=== PATIENT | male | born 1980 | race African-American/Black ===

== ENCOUNTER 2017-03-04 23:39 | Emergency (ER) | payer OTHER ==
[~2017-03-04] VITALS: Ht 185.4 cm; Wt 99.8 kg
--- NOTE | ~2017-03-04 | EKG ---
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 : 1980 Requested By: Leopoldo Garcia Order Number: [id number] MD: Dom Delgado Measurements Intervals [place] Rate: 64 P: 42 [place]: 147 QRS: 7 QRSD: 78 T: 9 QT: 365 QTc: 377 Interpretive Statements Sinus rhythm Early R-wave progression Early repolarization Compared to ECG 12/23/2016 22:42:20 No significant change was found Electronically Signed On 03-06-2017 17:21:01 CDT by Dom Delgado [email or web address] <ELECTRONICALLY SIGNED> By: Dom Delgado MD, [facility] 03/06/17 1721 [id number] Dom Delgado MD, [facility] /EPI
[~2017-03-04 23:39] MED LIST: ACETAMINOPHEN325 M1 PO; ALBUTEROL2.5 MG/31 INH; ASPIR-TRIN325 MG; EXCEDRIN SINUS1 EAC2 PO; FLEXERIL PO; IBUPROFEN 600600 M1 PO; IBUPROFEN 800800 M1 PO; MOBIC15 MG PO; NAPROSYN500 MG PO; NOHOMEMEDICATIONS; NORCO 5-325 TA1 EACH PO; OMEPRAZOLE 20 M20 M1 PO; PREDNISONE 20 M20 M1 PO; PREDNISONE 20 M20 MG PO; PROAIR HFA8.5 GM IH; PROAIR HFA8.5 GM INH; PROMETHAZINE-C120 ML PO; PROTONIX40 MG PO; TRAMADOL 50 MG50 MG PO; TYLENOL325 MG PO; ULTRAM 50MG TAB50 MG PO; VICODIN 5-5001 EACH PO; ZPAK PO
[2017-03-05 00:35] LABS: HEMOGLOBIN 16.8 gm/dL (14.0-18.0); MCHC 33.7 g/dL (28.0-37.0); MCV 83.3 fL (80.0-100.0); RDW 13.6 % (10.5-14.5)
[2017-03-05 00:40] LABS: ANION GAP 11 mmol/L (7-16); BUN 18 mg/dL (7-18); CALCIUM 9.2 mg/dL (8.5-10.1); CHLORIDE 99 mmol/L (98-107); CO2 28 mmol/L (21-32); GLUCOSE 99 mg/dL (74-106); POTASSIUM 3.6 mmol/L (3.5-5.1); SODIUM 138 mmol/L (136-145)
[2017-03-05 00:49] LABS: TROPONIN-I < 0.04 ng/mL (<0.04-0.07)
[2017-03-05 01:36] LABS: URINE BILIRUBIN NEGATIVE (Negative); URINE BLOOD NEGATIVE (Negative); URINE COLOR YELLOW; URINE GLUCOSE-RANDOM* NEGATIVE (Negative); URINE KETONES NEGATIVE (Negative); URINE LEUKOCYTES-REFLEX NEGATIVE (Negative); URINE PROTEIN (DIPSTICK) NEGATIVE (Negative); URINE SPECIFIC GRAVITY <= 1.005 (1.003-1.035); URINE UROBILINOGEN 0.2 E.U./dl (0.2-1.0)
[2017-03-05 02:17] VITALS: BP 116/86
== END 2017-03-05 02:18 | disposition home or self-care (01) ==
LOC: ER 23:39
PROVIDERS: Emergency Medicine
DX: R51 Headache (principal); R42 Dizziness and giddiness; J45.909 Unspecified asthma, uncomplicated; F10.99 Alcohol use, unspecified with unspecified alcohol-induced disorder; Z88.8 Allergy status to other drugs, medicaments and biological substances

== ENCOUNTER 2017-11-20 23:40 | Emergency (ER) | payer OTHER ==
[~2017-11-20] VITALS: Ht 185.4 cm; Wt 99.8 kg
--- NOTE | ~2017-11-20 | EKG ---
[place] [address] [facility] [employer] [place] [address] ELECTROCARDIOGRAM REPORT Name: ANNA MARQUEZ Room #: DEP [facility]#: [id number] Admission: 11/20/17 Attend Phys: Discharge: 11/21/17 Date of : 82 Report #: [id number] THIS REPORT FOR: //name// 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 : 1980 Requested By: Nat Krishna Order Number: [id number] MD: Dom Delgado Measurements Intervals [place] Rate: 66 P: 60 [place]: 150 QRS: 11 QRSD: 77 T: 6 QT: 363 QTc: 381 Interpretive Statements Sinus rhythm ST elev, probable normal early repol pattern Compared to ECG 08/07/2017 22:22:41 No significant change was found Electronically Signed On 11-21-2017 13:27:01 CDT by Dom Delgado [email or web address] <ELECTRONICALLY SIGNED> By: Dom Delgado MD, [facility] 11/21/17 1327 [id number] 2349 Dom Delgado MD, [facility] /EPI
[2017-11-21] MEDS ORDERED: HYDROCHLOROTH12.5 M1 PO
[2017-11-21 00:32] LABS: ABSOLUTE NEUTROPHILS 4.1 thou/uL (1.4-8.2); BASOPHILS 0.6 % (0.0-2.0); EOSINOPHILS 4.7 % (0.0-3.0); HEMATOCRIT 45.7 % (42.0-52.0); HEMOGLOBIN 15.4 gm/dL (14.0-18.0); LYMPHOCYTES 31.5 % (24.0-44.0); MCH 27.7 pg (26.0-34.0); MCHC 33.6 g/dL (28.0-37.0); MCV 82.5 fL (80.0-100.0); MONOCYTES 7.3 % (1.0-8.0); PLATELET COUNT 168 thou/uL (150-400); POLYS 55.9 % (36.0-66.0); RBC 5.54 mil/uL (4.50-6.00); RDW 13.8 % (10.5-14.5); WBC 7.3 thou/uL (4.0-11.0)
[2017-11-21 00:35] LABS: ANION GAP 6 mmol/L (7-16); BUN 19 mg/dL (7-18); CALCIUM 8.9 mg/dL (8.5-10.1); CHLORIDE 106 mmol/L (98-107); CO2 27 mmol/L (21-32); CREATININE 0.9 mg/dL (0.7-1.3); GLUCOSE 89 mg/dL (74-106); POTASSIUM 4.1 mmol/L (3.5-5.1); SODIUM 139 mmol/L (136-145)
[2017-11-21 00:42] LABS: ALBUMIN 3.6 g/dL (3.4-5.0); DIRECT BILIRUBIN < 0.1 mg/dL (<0.1-0.3); LIPASE 96 U/L (73-393); SGOT 27 U/L (15-37); SGPT 55 U/L (30-65); TOTAL BILIRUBIN 0.3 mg/dL (<0.1-1.0); TOTAL PROTEIN 7.2 g/dL (6.4-8.2)
[2017-11-21 01:39] LABS: URINE BILIRUBIN NEGATIVE (Negative); URINE BLOOD NEGATIVE (Negative); URINE CLARITY CLEAR; URINE COLOR YELLOW; URINE GLUCOSE-RANDOM* NEGATIVE (Negative); URINE KETONES NEGATIVE (Negative); URINE LEUKOCYTES-REFLEX NEGATIVE (Negative); URINE NITRITE-REFLEX NEGATIVE (Negative); URINE PROTEIN (DIPSTICK) NEGATIVE (Negative); URINE UROBILINOGEN 0.2 E.U./dl (0.2-1.0)
[2017-11-21] MEDS ORDERED: ZOFRAN ODT4 MG PO (02:37)
[2017-11-21] MEDS ORDERED: NAPROSYN500 MG PO (02:37)
[2017-11-21 02:52] VITALS: BP 120/71
== END 2017-11-21 02:53 | disposition home or self-care (01) ==
LOC: ER 23:40
PROVIDERS: Emergency Medicine
DX: M79.1 Myalgia (principal); R51 Headache; E86.0 Dehydration; J45.909 Unspecified asthma, uncomplicated

== ENCOUNTER 2018-02-16 08:58 | Emergency (ER) | payer OTHER ==
[~2018-02-16] VITALS: Ht 185.4 cm; Wt 104.3 kg
--- NOTE | ~2018-02-16 | EKG ---
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 : 1980 Requested By: Agata Canales Order Number: [id number] MD: Dom Delgado Measurements Intervals [place] Rate: 62 P: 69 [place]: 151 QRS: 9 QRSD: 87 T: 8 QT: 381 QTc: 387 Interpretive Statements Sinus rhythm ST elev, probable normal early repol pattern Compared to ECG 11/20/2017 23:49:50 No significant changes Electronically Signed On 02-16-2018 17:11:47 CDT by Dom Delgado [email or web address] <ELECTRONICALLY SIGNED> By: Dom Delgaod MD, [facility] 02/16/18 1711 2 2 Dom Delgado MD, [facility] /EPI
[~2018-02-16 08:58] MED LIST changes: +DOXYCYCLINE 10100 MG PO; +HYDROCHLOROTH12.5 M1 PO; +ZOFRAN ODT4 MG PO
[2018-02-16] MEDS ORDERED: PAIN RELIEF325 MG PO (09:33)
[2018-02-16] MEDS ORDERED: IBUPROFEN 800800 M1 PO (09:33)
[2018-02-16 10:45] LABS: ANION GAP 4 mmol/L (7-16); BUN 16 mg/dL (7-18); CALCIUM 8.7 mg/dL (8.5-10.1); CHLORIDE 106 mmol/L (98-107); CO2 28 mmol/L (21-32); GLUCOSE 106 mg/dL (74-106); POTASSIUM 4.1 mmol/L (3.5-5.1); SODIUM 138 mmol/L (136-145)
[2018-02-16 10:53] LABS: ALBUMIN 3.6 g/dL (3.4-5.0); SGOT 17 U/L (15-37); SGPT 34 U/L (30-65); TOTAL BILIRUBIN 0.4 mg/dL (<0.1-1.0); TOTAL PROTEIN 7.3 g/dL (6.4-8.2); TROPONIN-I <0.06 ng/mL (<0.06)
[2018-02-16 11:26] LABS: ABSOLUTE NEUTROPHILS 3.9 thou/uL (1.4-8.2); HEMOGLOBIN 15.9 gm/dL (14.0-18.0); LYMPHOCYTES 24.6 % (24.0-44.0); MCH 27.8 pg (26.0-34.0); MCHC 34.6 g/dL (28.0-37.0); MCV 80.2 fL (80.0-100.0); MONOCYTES 5.7 % (1.0-8.0); PLATELET COUNT 137 thou/uL (150-400); POLYS 63.7 % (36.0-66.0); RBC 5.74 mil/uL (4.50-6.00); RDW 13.5 % (10.5-14.5); WBC 6.1 thou/uL (4.0-11.0)
[2018-02-16] MEDS ORDERED: NAPROSYN500 MG PO (11:55)
[2018-02-16 12:40] VITALS: BP 130/80
== END 2018-02-16 12:41 | disposition home or self-care (01) ==
LOC: ER 08:58
PROVIDERS: Physician Assistant
DX: R07.89 Other chest pain (principal); R06.02 Shortness of breath; R11.0 Nausea; I10 Essential (primary) hypertension; J45.909 Unspecified asthma, uncomplicated; Z91.048 Other nonmedicinal substance allergy status

== ENCOUNTER 2018-05-17 14:08 | Emergency (ER) | payer OTHER ==
[~2018-05-17] VITALS: Ht 185.4 cm; Wt 108.9 kg
--- NOTE | ~2018-05-17 | EKG ---
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 : 1980 Requested By: Agata Canales Order Number: [id number] MD: Sebas Ruiz Measurements Intervals [place] Rate: 73 P: 54 [place]: 146 QRS: 15 QRSD: 78 T: 19 QT: 348 QTc: 384 Interpretive Statements Sinus rhythm Low voltage, precordial leads Compared to ECG 02/16/2018 09:23:55 Low QRS voltage now present ST (T wave) deviation no longer present Electronically Signed On 05-17-2018 17:27:47 CDT by Sebas Ruiz [email or web address] <ELECTRONICALLY SIGNED> By: Sebas Ruiz MD 05/17/18 1727 1415 1415 Sebas Ruiz MD /[facility]
[~2018-05-17 14:08] MED LIST changes: +PAIN RELIEF325 MG PO
[2018-05-17 14:58] LABS: MCH 28.3 pg (26.0-34.0); MCHC 34.6 g/dL (28.0-37.0); RBC 5.98 mil/uL (4.50-6.00); RDW 13.9 % (10.5-14.5); WBC 8.8 thou/uL (4.0-11.0)
[2018-05-17 15:05] LABS: ANION GAP 5 mmol/L (7-16); BUN 15 mg/dL (7-18); CHLORIDE 103 mmol/L (98-107); CO2 28 mmol/L (21-32); CREATININE 1.1 mg/dL (0.7-1.3); POTASSIUM 3.6 mmol/L (3.5-5.1); SODIUM 136 mmol/L (136-145)
[2018-05-17 15:08] LABS: GLUCOSE 109 mg/dL (74-106)
[2018-05-17 15:13] LABS: ALBUMIN 3.6 g/dL (3.4-5.0); SGOT 26 U/L (15-37); SGPT 50 U/L (30-65); TOTAL BILIRUBIN 0.5 mg/dL (<0.1-1.0); TOTAL PROTEIN 7.9 g/dL (6.4-8.2); TROPONIN-I <0.06 ng/mL (<0.06)
[2018-05-17] MEDS ORDERED: VENTOLIN HFA 1818 GM INH (15:57)
[2018-05-17] MEDS ORDERED: IBUPROFEN 600600 M1 PO (15:57)
[2018-05-17] MEDS ORDERED: HYDROCHLOROTH12.5 M1 PO (16:11)
[2018-05-17 16:15] VITALS: BP 126/77
== END 2018-05-17 16:16 | disposition home or self-care (01) ==
LOC: ER 14:08
PROVIDERS: Physician Assistant
DX: R07.89 Other chest pain (principal); R09.81 Nasal congestion; Z76.0 Encounter for issue of repeat prescription; J45.909 Unspecified asthma, uncomplicated; I10 Essential (primary) hypertension

== ENCOUNTER 2018-08-04 06:01 | Emergency (ER) | payer OTHER ==
[~2018-08-04] VITALS: Ht 182.9 cm; Wt 104.3 kg
--- NOTE | ~2018-08-04 | EKG ---
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 08/04/18 0831 5 5 Dom Delgado MD, [facility] /EPI
[~2018-08-04 06:01] MED LIST changes: +VENTOLIN HFA 1818 GM INH
[2018-08-04 06:45] LABS: ABSOLUTE NEUTROPHILS 4.2 thou/uL (1.4-8.2); BASOPHILS 0.4 % (0.0-2.0); EOSINOPHILS 5.1 % (0.0-3.0); HEMATOCRIT 51.8 % (42.0-52.0); HEMOGLOBIN 17.5 gm/dL (14.0-18.0); LYMPHOCYTES 38.3 % (24.0-44.0); MCH 27.8 pg (26.0-34.0); MCHC 33.8 g/dL (28.0-37.0); MCV 82.4 fL (80.0-100.0); MONOCYTES 6.1 % (1.0-8.0); PLATELET COUNT 185 thou/uL (150-400); POLYS 50.1 % (36.0-66.0); RBC 6.28 mil/uL (4.50-6.00); RDW 13.6 % (10.5-14.5); WBC 8.4 thou/uL (4.0-11.0)
[2018-08-04 06:46] LABS: ANION GAP 9 mmol/L (7-16); BUN 17 mg/dL (7-18); CALCIUM 8.9 mg/dL (8.5-10.1); CHLORIDE 101 mmol/L (98-107); CO2 28 mmol/L (21-32); CREATININE 1.1 mg/dL (0.7-1.3); GLUCOSE 100 mg/dL (74-106); POTASSIUM 3.4 mmol/L (3.5-5.1); SODIUM 138 mmol/L (136-145)
[2018-08-04 06:47] LABS: APTT 29.4 Seconds (24.5-32.8); PROTIME 10.7 Seconds (9.3-11.4)
[2018-08-04 06:55] LABS: SGOT 24 U/L (15-37); SGPT 36 U/L (30-65); TOTAL BILIRUBIN 0.8 mg/dL (<0.1-1.0); TROPONIN-I <0.06 ng/mL (<0.06)
[2018-08-04] MEDS ORDERED: NAPROSYN500 MG PO (07:22)
[2018-08-04] MEDS ORDERED: NORFLEX100 MG PO (07:22)
[2018-08-04 07:48] VITALS: BP 119/77
== END 2018-08-04 07:56 | disposition home or self-care (01) ==
LOC: ER 06:01
PROVIDERS: Emergency Medicine
DX: R07.89 Other chest pain (principal); J45.909 Unspecified asthma, uncomplicated; Z91.09 Other allergy status, other than to drugs and biological substances

== ENCOUNTER 2019-08-06 13:11 | Emergency (ER) | payer BC ==
[~2019-08-06] VITALS: Ht 180.3 cm; Wt 97.5 kg
[~2019-08-06 13:11] MED LIST changes: +NORFLEX100 MG PO
[2019-08-06 14:09] LABS: ABSOLUTE NEUTROPHILS 4.1 thou/uL (1.4-8.2); BASOPHILS 0.7 % (0.0-2.0); EOSINOPHILS 5.7 % (0.0-3.0); HEMATOCRIT 50.6 % (42.0-52.0); HEMOGLOBIN 16.6 gm/dL (14.0-18.0); LYMPHOCYTES 22.7 % (24.0-44.0); MCH 27.3 pg (26.0-34.0); MCHC 32.9 g/dL (28.0-37.0); MCV 83.1 fL (80.0-100.0); MONOCYTES 5.6 % (1.0-8.0); PLATELET COUNT 159 thou/uL (150-400); POLYS 65.3 % (36.0-66.0); RBC 6.09 mil/uL (4.50-6.00); RDW 14.4 % (10.5-14.5); WBC 6.2 thou/uL (4.0-11.0)
[2019-08-06 14:23] LABS: ANION GAP 8 mmol/L (7-16); BUN 15 mg/dL (7-18); CALCIUM 9.3 mg/dL (8.5-10.1); CHLORIDE 104 mmol/L (98-107); CO2 26 mmol/L (21-32); GLUCOSE 90 mg/dL (74-106); POTASSIUM 3.4 mmol/L (3.5-5.1); SODIUM 138 mmol/L (136-145)
[2019-08-06 14:33] LABS: SGOT 24 U/L (15-37); SGPT 43 U/L (30-65); TOTAL BILIRUBIN 0.7 mg/dL (<0.1-1.0); TOTAL PROTEIN 7.7 g/dL (6.4-8.2); TROPONIN-I <0.06 ng/mL (<0.06)
[2019-08-06 17:22] VITALS: BP 137/75
--- NOTE | 2019-08-09 15:53 | EKG ---
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
== END 2019-08-06 17:22 | disposition home or self-care (01) ==
LOC: ER 13:11
PROVIDERS: Emergency Medicine
DX: R07.9 Chest pain, unspecified (principal); I10 Essential (primary) hypertension; J45.909 Unspecified asthma, uncomplicated; Z91.048 Other nonmedicinal substance allergy status

== ENCOUNTER 2019-12-29 07:13 | Emergency (ER) | payer OTHER ==
[~2019-12-29] VITALS: Ht 185.4 cm; Wt 95.3 kg
[2019-12-29] MEDS ORDERED: VITAMIN C1000 MG PO (07:23)
[2019-12-29] MEDS ORDERED: FISH OIL 1,0001 EAC9 PO (07:23)
[2019-12-29 07:35] LABS: URINE BILIRUBIN NEGATIVE (Negative); URINE BLOOD NEGATIVE (Negative); URINE CLARITY CLEAR; URINE COLOR YELLOW; URINE GLUCOSE-RANDOM* NEGATIVE (Negative); URINE KETONES NEGATIVE (Negative); URINE LEUKOCYTES-REFLEX NEGATIVE (Negative); URINE NITRITE-REFLEX NEGATIVE (Negative); URINE PROTEIN (DIPSTICK) NEGATIVE (Negative); URINE SPECIFIC GRAVITY <= 1.005 (1.005-1.035); URINE UROBILINOGEN 0.2 E.U./dl (0.2-1.0)
[2019-12-29 07:46] LABS: ABSOLUTE NEUTROPHILS 4.1 thou/uL (1.4-8.2); BASOPHILS 0.6 % (0.0-2.0); EOSINOPHILS 5.3 % (0.0-3.0); HEMATOCRIT 50.7 % (42.0-52.0); HEMOGLOBIN 17.3 gm/dL (14.0-18.0); MCH 28.2 pg (26.0-34.0); MCHC 34.1 g/dL (28.0-37.0); MCV 82.8 fL (80.0-100.0); MONOCYTES 7.5 % (1.0-8.0); PLATELET COUNT 173 thou/uL (150-400); POLYS 55.6 % (36.0-66.0); RBC 6.13 mil/uL (4.50-6.00); RDW 13.7 % (10.5-14.5); WBC 7.3 thou/uL (4.0-11.0)
[2019-12-29 08:01] LABS: CALCIUM 8.9 mg/dL (8.5-10.1); POTASSIUM 3.6 mmol/L (3.5-5.1)
[2019-12-29 08:07] LABS: ALBUMIN 4.1 g/dL (3.4-5.0); TOTAL BILIRUBIN 0.4 mg/dL (<0.1-1.0)
[2019-12-29] MEDS ORDERED: ONDANSETRON ODT8 MG PO (09:01)
[2019-12-29 09:13] VITALS: BP 125/80
== END 2019-12-29 09:13 | disposition home or self-care (01) ==
LOC: ER 07:13
PROVIDERS: Emergency Medicine
DX: R19.7 Diarrhea, unspecified (principal); R11.0 Nausea; R10.32 Left lower quadrant pain; R10.13 Epigastric pain; J45.909 Unspecified asthma, uncomplicated; I10 Essential (primary) hypertension; Z79.899 Other long term (current) drug therapy; Z88.8 Allergy status to other drugs, medicaments and biological substances; Z98.890 Other specified postprocedural states